=== PATIENT | male | born 1995 | race Hispanic/Latino ===

== ENCOUNTER 2023-05-31 22:48 | Emergency (ER) | payer OTHER ==
[~2023-05-31] VITALS: Ht 167.6 cm; Wt 70.0 kg
[2023-05-31 23:16] VITALS: BP 110/63
[2023-05-31 23:30] VITALS: BP 129/93
== END 2023-05-31 23:30 | DRG 923 ==
LOC: ED 22:48
DX: Z04.1 Encounter for examination and observation following transport accident (principal)